=== PATIENT | male | born 1935 | race Caucasian/White ===

== ENCOUNTER 2018-07-28 09:32 | Emergency (ER) | payer OTHER ==
[~2018-07-28] VITALS: Ht 172.7 cm; Wt 82.6 kg
[~2018-07-28 09:32] MED LIST: ASPIR 8181 MG; ATORVASTATIN CA20 MG; CATAFLAM50 MG PO; CENTRUM SILVER1 EAC2; DILTIAZEM 24HR180 M1; FINASTERIDE5 MG; HIBICLENS118 ML TP; HUMULIN 70/30 V10 ML; HUMULIN R500 U/ML; LOSARTAN POTAS100 MG; ORPH100T PO; SEPTRA DS TABLE1 TAB PO; TAMS0.4C
[2018-07-28] MEDS ORDERED: ATORVASTATIN CA40 MG PO (09:56)
[2018-07-28] MEDS ORDERED: DILTIAZEM100 MG/100 IV (09:57)
[2018-07-28] MEDS ORDERED: PROSCAR5 MG PO (10:02)
== END 2018-07-28 14:55 | disposition home or self-care (01) ==
LOC: ER 09:32
DX: K57.32 Diverticulitis of large intestine without perforation or abscess without bleeding (principal); R10.32 Left lower quadrant pain